=== PATIENT | female | born 1960 | race Caucasian/White ===

== ENCOUNTER 2021-01-23 15:03 | Outpatient (REF) | payer MEDICAID, SELFPAY ==
[2021-01-23 20:51] LABS: ALT 23 U/L (14-59); AST 22 U/L (15-37); Albumin 4.5 g/dL (3.4-5.0); Alkaline Phosphatase 87 U/L (46-116); Anion Gap 9.6 mmol/L (3-11); BUN 15 mg/dL (7-18); Bilirubin, Total 0.6 mg/dL (0.2-1.0); CO2 28.4 mmol/L (21.0-32.0); CREATININE 0.7 mg/dL (0.55-1.02); Calcium 9.6 mg/dL (8.5-10.1); Chloride 103 mmol/L (98-107); Glucose 89 mg/dL (74-106); LDL CHOLESTEROL 153 mg/dL (<100); Sodium 141 mmol/L (136-145); TSH 1.57 uIU/mL (0.36-3.74); Total Protein 7.6 g/dL (6.4-8.2)
== END 2021-01-23 15:04 | disposition home or self-care (01) ==
LOC: NCHCN 15:03
PROVIDERS: PCP Dentist General Practice; Visit Provider Internal Medicine
DX: I10 Essential (primary) hypertension (principal); F17.200 Nicotine dependence, unspecified, uncomplicated; Z00.00 Encounter for general adult medical examination without abnormal findings
CPT/HCPCS: 80053; 83721; 84443

== ENCOUNTER 2021-12-13 12:47 | Outpatient (REF) | payer MEDICAID, SELFPAY ==
[2021-12-13 20:52] LABS: ALT 25 U/L (14-59); Calculated LDL 103 mg/dL (<100); Cholesterol 207 mg/dL (<200); Glucose 101 mg/dL (74-106); HDL Cholesterol 95 mg/dL (40-60); Triglyceride 49 mg/dL (<150)
[2021-12-13 21:13] LABS: Creatine Kinase 83 U/L (26-192)
== END 2021-12-13 12:48 | disposition home or self-care (01) ==
LOC: NCHCN 12:47
PROVIDERS: PCP Dentist General Practice; Visit Provider Internal Medicine
DX: I10 Essential (primary) hypertension (principal); F17.210 Nicotine dependence, cigarettes, uncomplicated
CPT/HCPCS: 80061; 82550; 82947; 84460

== ENCOUNTER 2023-03-25 15:46 | Outpatient (REF) | payer BC, SELFPAY ==
--- OUTSIDE RECORDS SUMMARY | 2023-03-25 15:53 | XMS_ITS | Continuity of Care Document ---
Author Name Unknown Organization [facility] Address [address] [place] [address] Care Team Providers Care Marine Equipment Research Engineer Name Role Phone Coleman Rowland Primary Care Physician Encounter [facility] Date(s): 06/26/22 - 12/06/[address] [id number] Discharge Disposition: Home or Self Care Attending Physician: Coleman Rowland MD Admitting Physician: Coleman Rowland MD Referring Physician: Coleman Rowland MD Allergies, Adverse Reactions, Alerts Substance Reaction Severity Status sulfa drugs Moderate Active Problem List Condition Confirmation Course Effective Dates Status Health St atus Informant Calcific tendinitis Confirmed Active Closed fracture of fibula Confirmed Active Hemorrhoids Confirmed Active Knee pain Confirmed Active Right knee pain Confirmed Active Social History Social History Type Response Tobacco Current everyday tob acco user Tobacco Use:. Sex Female Patient Care team information Care Team Personnel Name: Coleman Rowland MD Position: No Access Member Role: Primary Care Physician Address: Address: [facility] [address] [place] [address]- [place] Care Team Related Persons Name: DARIO SORIA Address: Home
--- OUTSIDE RECORDS SUMMARY | 2023-03-25 15:53 | XMS_ITS | Continuity of Care Document ---
Author Name Unknown Organization [facility] Address [address] [place] [address] Care Team Providers Care In School Suspension Coordinator Name Role Phone Coleman Rowland Primary Care Physician Encounter [facility] Date(s): 01/22/23 - 01/22/[address] [phone] Discharge Disposition: Home or Self Care Attending [...] Member Role: Primary Care Physician Address: Address: [facility] [address] [place] [address]- [place] Care Team Related Persons Name: DARIO SORIA
[2023-03-25 19:18] LABS: ESR 4 mm/hr (0-30)
[2023-03-25 19:20] LABS: HCT 40.1 % (36.0-46.0); HGB 13.5 g/dL (11.2-15.7); MCH 32.3 pg (27.0-33.0); MCHC 33.7 % (32.0-36.0); MCV 96 fL (80-95); MPV 9.8 fL (8.0-11.0); Platelet Count 261 10^3/uL (130-400); RBC 4.18 10^6/uL (3.93-5.22); RDW 13.2 % (11.7-14.6); RDW-SD 47.2 fL; WBC 6.77 10^3/uL (4.4-10.8)
[2023-03-25 19:29] LABS: C-Reactive Protein 0.98 mg/dL (0.0-0.3); Creatine Kinase 117 U/L (26-192); LDH 218 U/L (81-234)
== END 2023-03-25 15:47 | disposition home or self-care (01) ==
LOC: NCHCN 15:46
PROVIDERS: PCP Dentist General Practice; Visit Provider Internal Medicine
DX: M60.89 Other myositis, multiple sites (principal); R79.82 Elevated C-reactive protein (CRP)
CPT/HCPCS: 82550; 85027; 85652; 83615; 86140

== ENCOUNTER 2023-10-24 22:43 | Outpatient (REF) | payer BC, SELFPAY ==
[2023-10-24 19:12] LABS: Uric Acid 5.5 mg/dL (2.6-6.0)
[2023-10-24 19:19] LABS: C-Reactive Protein < 0.50 mg/dL (<or=0.5)
--- OUTSIDE RECORDS SUMMARY | 2023-10-24 22:48 | XMS_ITS | Clinical Summary ---
Author Organization [facility] [place] [address] Care Team Providers Care Marine Firefighter Name Role Phone Coleman Farias MD Primary Care Provider Social History Tobacco Use Types Packs/Day Years Used Date Smoking Tobacco: Never Assessed Sex and Gender Information Value Date Recorded Sex Assigned at Not on file Gender Identity Not on file Sexual Orientation Not on file Plan of Treatment Health Maintenance Due Date Last Done Comments CT Colonography 1959 Colonoscopy 1959 Colorectal Cancer Screening 1959 FIT DNA 1959 FIT 1959 Sigmoidoscopy (10 year) with FIT yearly 1959 Sigmoidoscopy 1959 HIV screen 06/19/1977 Hepatitis C Screening 06/19/1977 Tdap adult 06/19/1978 Tetanus vaccine 06/19/1978 HPV test 06/19/1989 PAP Smear 06/19/1989 Breast Cancer Share Decision Needed 1999 Breast Cancer screening 1999 Zoster vaccine (1 of 2) 06/19/2009 Advance Directive 06/19/2014 Covid-19 Vaccine ( season) 2022 Influenza (Flu) vaccine (1 o f 1 - Influenza standard series) 11/17/2023 Care Teams Marine Firefighter Relationship Specialty Start Date End Date Coleman Farias MD [address] [place] [address] [id number] [facility] - General 11/14/10
--- OUTSIDE RECORDS SUMMARY | 2023-10-24 22:48 | XMS_ITS | Encounter Summary ---
[place] [address] Care Team Providers Care Leadlighter Name Role Phone Coleman Farias MD Primary Care Provider [phone] Reason for Referral * Consultation ([facility]IRGILIO) - Closed Specialty Diagnoses / Procedures Referred By Alyse t Referred To Contact Podiatry Diagnoses Synovial cyst Coleman Farias MD [address] [address] [facility] [place] [place] [address] Referral ID Status Reason Start Date Expiration Date V isits Requested Visits Authorized [id number] Closed Consult, Test & Treat PCP Updated and/or Approved 06/21/2022 06/21/2023 6 6 Encounter Details Date Type Department Care Team ([facility] st Contact Info) Description 06/21/2022 Transcribe Orders eDH Incoming Referrals [phone] Coleman Farias MD [address] [place] [id number] Synovial cyst Social History Tobacco Use Types Packs/Day Years Used Date Smoking Tobacco: Never Assessed Sex and Gender Information Value Date Recorded Sex Assigned at Not on file Gender Identity Not on file Sexual Orientation Not on file documented as of this encounter Plan of Treatment Scheduled Referrals Name Type Priority Associated Diagnoses Orde r Schedule Referral to Podiatry Outpatient Referral Routine Synovial cyst Ordered: 06/21/2022 documented as of this encounter Visit Diagnoses Diagnosis Synovial cyst Synovial cyst, unspecified documented in this encounter Care Teams Leadlighter Relationship Specialty Start Date End Date Coleman Farias MD [address] [place] [id number] PCP - General 11/14/10 documented as of this encounter
[2023-10-25 17:59] LABS: Rheumatoid Factor <8.6 IU/mL (<12.0)
== END 2023-10-24 22:44 | disposition home or self-care (01) ==
LOC: NCHCN 22:43
PROVIDERS: PCP Dentist General Practice; Visit Provider Internal Medicine
DX: M11.89 Other specified crystal arthropathies, multiple sites (principal)
CPT/HCPCS: 84550; 86140; 86431

== ENCOUNTER 2024-10-08 16:52 | Outpatient (REF) | payer MEDICARE, MEDICAID, SELFPAY ==
[2024-10-08 20:18] LABS: ALT 30 U/L (14-59); Calculated LDL 73 mg/dL (<100); Cholesterol 148 mg/dL (<200); Glucose 109 mg/dL (74-106); HDL Cholesterol 55 mg/dL (>or=50); TSH 0.64 uIU/mL (0.36-3.74); Triglyceride 104 mg/dL (<150)
[2024-10-08 20:32] LABS: Creatine Kinase 149 U/L (26-192)
== END 2024-10-08 16:53 | disposition home or self-care (01) ==
LOC: NCHCN 16:52
PROVIDERS: PCP Dentist General Practice; Visit Provider Internal Medicine
DX: E78.5 Hyperlipidemia, unspecified (principal); I10 Essential (primary) hypertension
CPT/HCPCS: 80061; 82550; 82947; 84443; 84460